=== PATIENT | male | born 1945 | race African-American/Black ===

== ENCOUNTER 2020-10-10 09:47 | Inpatient (IN) | payer OTHER ==
[2020-10-10] MEDS ORDERED: NICOTINE 10 MG CARTRIDGE (INHALER) IH PRN (12:43)
[2020-10-10] MEDS ORDERED: MAG HYDROX/AL HYDROX/SIMETH 30 ML UNIT-DOSE CUP PO PRN (12:43)
[2020-10-10] MEDS ORDERED: guaiFENesin 200 MG/10 ML 10 ML UNIT-DOSE CUPS PO PRN (12:43)
[2020-10-10] MEDS ORDERED: IBUPROFEN 400 MG TABLET (FP) PO PRN (12:43)
[2020-10-10] MEDS ORDERED: MAGNESIUM HYDROX 2400MG/30ML ORAL SUSPENSION 30 ML CUP PO PRN (12:43)
[2020-10-10] MEDS ORDERED: P-EPHED 60MG/TRIPROLIDI 2.5MG TABLET PO PRN (12:43)
[2020-10-10] MEDS ORDERED: MAGNESIUM CITRATE 300 ML BOTTLE PO PRN (12:43)
[2020-10-10] MEDS ORDERED: LOPERAMIDE HCL 2 MG CAPSULE PO PRN (12:43)
[2020-10-10 13:18] VITALS: BMI 24.3
[2020-10-10] MEDS: NICOTINE 7 MG/24 HOURS TOPICAL PATCH TD SCH (13:29)
[2020-10-10 15:41] LABS: HEMATOCRIT 39.3 % (35.4-49); HEMOGLOBIN 13.2 GM/dL (11.7-16.9); MCH 30.2 pg (25.7-33.7); MCHC 33.6 g/dl (32.0-35.9); MEAN CELL VOLUME 89.9 fl (80-96); MEAN PLT VOLUME 8.8 fl (7.5-11.1); PLATELET COUNT 227 10^3/uL (134-434); RBC 4.37 M/mm3 (4.00-5.60); RDW 15.5 % (11.9-15.9); WHITE BLOOD COUNT 7.7 K/mm3 (4.0-10.0)
[2020-10-10 15:46] LABS: ALBUMIN 3.6 g/dl (3.4-5.0)
[2020-10-10 15:49] LABS: BLOOD UREA NITROGEN 16.9 mg/dL (7-18); CALCIUM 8.4 mg/dL (8.5-10.1); CREATININE 1.4 mg/dL (0.55-1.3)
[2020-10-10 15:51] LABS: BILIRUBIN,TOTAL 1.9 mg/dL (0.2-1); TOT PROT 8.7 g/dl (6.4-8.2)
[2020-10-10] MEDS: APIXABAN 5 MG TABLET PO SCH (23:34)
[2020-10-10] MEDS: THIAMINE HCL 100 MG TABLET (FP) PO SCH (23:34)
[2020-10-10] MEDS: MELATONIN 5 MG TABLETS PO SCH (23:34)
[2020-10-11] MEDS: APIXABAN 5 MG TABLET PO SCH ×2 (09:55→21:07)
[2020-10-11] MEDS: NICOTINE 7 MG/24 HOURS TOPICAL PATCH TD SCH (09:55)
[2020-10-11] MEDS: PRENATAL VITAMINS W/ FOLIC ACID TABLET (FP) PO SCH (09:55)
[2020-10-11 11:50] LABS: HIV INTERPRETATION NEGATIVE (NEGATIVE)
[2020-10-11] MEDS ORDERED: PNEUMOC 13-VAL CONJ-DIP CRM/PF 0.5 ML DISP.SYRIN IM ONE (12:00)
[2020-10-11] MEDS: ACETAMINOPHEN 325 MG TABLET (FP) PO PRN ×2 (12:04→17:40)
[2020-10-11] MEDS: THIAMINE HCL 100 MG TABLET (FP) PO SCH (21:07)
[2020-10-11] MEDS: MELATONIN 5 MG TABLETS PO SCH (21:08)
[2020-10-11] MEDS: ATORVASTATIN CA 10 MG TABLET (FP) PO SCH (21:09)
[2020-10-11] MEDS: hydrOXYzine PAMOATE 25 MG CAPSULE (FP) PO SCH (21:09)
[2020-10-12] MEDS: APIXABAN 5 MG TABLET PO SCH ×2 (10:05→21:39)
[2020-10-12] MEDS: NICOTINE 7 MG/24 HOURS TOPICAL PATCH TD SCH (10:05)
[2020-10-12] MEDS: PRENATAL VITAMINS W/ FOLIC ACID TABLET (FP) PO SCH (10:05)
[2020-10-12] MEDS: THIAMINE HCL 100 MG TABLET (FP) PO SCH (21:39)
[2020-10-12] MEDS: ATORVASTATIN CA 10 MG TABLET (FP) PO SCH (21:39)
[2020-10-12] MEDS: MELATONIN 5 MG TABLETS PO SCH (21:40)
[2020-10-13] MEDS: PRENATAL VITAMINS W/ FOLIC ACID TABLET (FP) PO SCH (09:57)
[2020-10-13] MEDS: APIXABAN 5 MG TABLET PO SCH ×2 (09:57→22:38)
[2020-10-13] MEDS: NICOTINE 7 MG/24 HOURS TOPICAL PATCH TD SCH (09:57)
[2020-10-13] MEDS: ATORVASTATIN CA 10 MG TABLET (FP) PO SCH (22:38)
[2020-10-13] MEDS: MELATONIN 5 MG TABLETS PO SCH (22:38)
[2020-10-13] MEDS: THIAMINE HCL 100 MG TABLET (FP) PO SCH (22:38)
[2020-10-13] MEDS: hydrOXYzine PAMOATE 25 MG CAPSULE (FP) PO SCH (22:39)
[2020-10-14] MEDS ORDERED: PT OWN MED DRAWER 7, Y5N ONE (08:15)
[2020-10-14] MEDS: NICOTINE 7 MG/24 HOURS TOPICAL PATCH TD SCH (09:26)
[2020-10-14] MEDS: PRENATAL VITAMINS W/ FOLIC ACID TABLET (FP) PO SCH (09:26)
[2020-10-14] MEDS: APIXABAN 5 MG TABLET PO SCH ×2 (09:26→22:05)
[2020-10-14] MEDS: HYDROCORTISONE 2.5% TOPICAL CREAM 30 GM TUBE RC PRN (09:27)
[2020-10-14] MEDS: ATORVASTATIN CA 10 MG TABLET (FP) PO SCH (22:05)
[2020-10-14] MEDS: THIAMINE HCL 100 MG TABLET (FP) PO SCH (22:05)
[2020-10-14] MEDS: MELATONIN 5 MG TABLETS PO SCH (22:05)
[2020-10-15] MEDS: PRENATAL VITAMINS W/ FOLIC ACID TABLET (FP) PO SCH (10:11)
[2020-10-15] MEDS: APIXABAN 5 MG TABLET PO SCH ×2 (10:11→21:40)
[2020-10-15] MEDS: NICOTINE 7 MG/24 HOURS TOPICAL PATCH TD SCH (10:11)
[2020-10-15] MEDS: ATORVASTATIN CA 10 MG TABLET (FP) PO SCH (21:40)
[2020-10-15] MEDS: MELATONIN 5 MG TABLETS PO SCH (21:40)
[2020-10-15] MEDS: THIAMINE HCL 100 MG TABLET (FP) PO SCH (21:40)
[2020-10-16] MEDS: PRENATAL VITAMINS W/ FOLIC ACID TABLET (FP) PO SCH (10:23)
[2020-10-16] MEDS: NICOTINE 7 MG/24 HOURS TOPICAL PATCH TD SCH (10:23)
[2020-10-16] MEDS: APIXABAN 5 MG TABLET PO SCH ×2 (10:23→21:50)
[2020-10-16] MEDS: THIAMINE HCL 100 MG TABLET (FP) PO SCH (21:50)
[2020-10-16] MEDS: MELATONIN 5 MG TABLETS PO SCH (21:50)
[2020-10-16] MEDS: ATORVASTATIN CA 10 MG TABLET (FP) PO SCH (21:50)
[2020-10-17] MEDS: PRENATAL VITAMINS W/ FOLIC ACID TABLET (FP) PO SCH (10:05)
[2020-10-17] MEDS: NICOTINE 7 MG/24 HOURS TOPICAL PATCH TD SCH (10:05)
[2020-10-17] MEDS: APIXABAN 5 MG TABLET PO SCH ×2 (10:05→21:20)
[2020-10-17] MEDS: ACETAMINOPHEN 325 MG TABLET (FP) PO PRN (19:05)
[2020-10-17] MEDS: THIAMINE HCL 100 MG TABLET (FP) PO SCH (21:20)
[2020-10-17] MEDS: ATORVASTATIN CA 10 MG TABLET (FP) PO SCH (21:20)
[2020-10-17] MEDS: MELATONIN 5 MG TABLETS PO SCH (21:20)
[2020-10-18] MEDS: NICOTINE 7 MG/24 HOURS TOPICAL PATCH TD SCH (09:40)
[2020-10-18] MEDS: APIXABAN 5 MG TABLET PO SCH ×2 (09:40→22:01)
[2020-10-18] MEDS: PRENATAL VITAMINS W/ FOLIC ACID TABLET (FP) PO SCH (09:40)
[2020-10-18] MEDS: THIAMINE HCL 100 MG TABLET (FP) PO SCH (22:01)
[2020-10-18] MEDS: MELATONIN 5 MG TABLETS PO SCH (22:01)
[2020-10-18] MEDS: ATORVASTATIN CA 10 MG TABLET (FP) PO SCH (22:01)
[2020-10-18] MEDS: hydrOXYzine PAMOATE 25 MG CAPSULE (FP) PO SCH (22:02)
[2020-10-19] MEDS: APIXABAN 5 MG TABLET PO SCH ×2 (09:59→21:35)
[2020-10-19] MEDS: PRENATAL VITAMINS W/ FOLIC ACID TABLET (FP) PO SCH (09:59)
[2020-10-19] MEDS: NICOTINE 7 MG/24 HOURS TOPICAL PATCH TD SCH (10:00)
[2020-10-19] MEDS: ACETAMINOPHEN 325 MG TABLET (FP) PO PRN (10:01)
[2020-10-19] MEDS: MELATONIN 5 MG TABLETS PO SCH (21:35)
[2020-10-19] MEDS: THIAMINE HCL 100 MG TABLET (FP) PO SCH (21:35)
[2020-10-19] MEDS: ATORVASTATIN CA 10 MG TABLET (FP) PO SCH (21:35)
[2020-10-20] MEDS: PRENATAL VITAMINS W/ FOLIC ACID TABLET (FP) PO SCH (10:10)
[2020-10-20] MEDS: APIXABAN 5 MG TABLET PO SCH ×2 (10:10→21:24)
[2020-10-20] MEDS: NICOTINE 7 MG/24 HOURS TOPICAL PATCH TD SCH (10:10)
[2020-10-20] MEDS: ACETAMINOPHEN 325 MG TABLET (FP) PO PRN (16:45)
[2020-10-20] MEDS: MELATONIN 5 MG TABLETS PO SCH (21:24)
[2020-10-20] MEDS: ATORVASTATIN CA 10 MG TABLET (FP) PO SCH (21:24)
[2020-10-20] MEDS: THIAMINE HCL 100 MG TABLET (FP) PO SCH (21:24)
[2020-10-21] MEDS: NICOTINE 7 MG/24 HOURS TOPICAL PATCH TD SCH (09:45)
[2020-10-21] MEDS: PRENATAL VITAMINS W/ FOLIC ACID TABLET (FP) PO SCH (09:45)
[2020-10-21] MEDS: APIXABAN 5 MG TABLET PO SCH ×2 (09:45→21:27)
[2020-10-21] MEDS: ATORVASTATIN CA 10 MG TABLET (FP) PO SCH (21:27)
[2020-10-21] MEDS: THIAMINE HCL 100 MG TABLET (FP) PO SCH (21:27)
[2020-10-21] MEDS: MELATONIN 5 MG TABLETS PO SCH (21:27)
[2020-10-22] MEDS: APIXABAN 5 MG TABLET PO SCH ×2 (09:45→21:35)
[2020-10-22] MEDS: PRENATAL VITAMINS W/ FOLIC ACID TABLET (FP) PO SCH (09:45)
[2020-10-22] MEDS: NICOTINE 7 MG/24 HOURS TOPICAL PATCH TD SCH (09:46)
[2020-10-22] MEDS: ACETAMINOPHEN 325 MG TABLET (FP) PO PRN (15:31)
[2020-10-22] MEDS: THIAMINE HCL 100 MG TABLET (FP) PO SCH (21:35)
[2020-10-22] MEDS: MELATONIN 5 MG TABLETS PO SCH (21:35)
[2020-10-22] MEDS: ATORVASTATIN CA 10 MG TABLET (FP) PO SCH (21:35)
[2020-10-23] MEDS: APIXABAN 5 MG TABLET PO SCH ×2 (09:33→21:20)
[2020-10-23] MEDS: PRENATAL VITAMINS W/ FOLIC ACID TABLET (FP) PO SCH (09:33)
[2020-10-23] MEDS: HYDROCORTISONE 2.5% TOPICAL CREAM 30 GM TUBE RC PRN (09:33)
[2020-10-23] MEDS: NICOTINE 7 MG/24 HOURS TOPICAL PATCH TD SCH (09:34)
[2020-10-23] MEDS: ATORVASTATIN CA 10 MG TABLET (FP) PO SCH (21:20)
[2020-10-23] MEDS: MELATONIN 5 MG TABLETS PO SCH (21:20)
[2020-10-23] MEDS: THIAMINE HCL 100 MG TABLET (FP) PO SCH (21:20)
[2020-10-24] MEDS: APIXABAN 5 MG TABLET PO SCH ×2 (09:23→21:26)
[2020-10-24] MEDS: NICOTINE 7 MG/24 HOURS TOPICAL PATCH TD SCH (09:23)
[2020-10-24] MEDS: PRENATAL VITAMINS W/ FOLIC ACID TABLET (FP) PO SCH (09:23)
[2020-10-24] MEDS: ACETAMINOPHEN 325 MG TABLET (FP) PO PRN (12:43)
[2020-10-24] MEDS: THIAMINE HCL 100 MG TABLET (FP) PO SCH (21:26)
[2020-10-24] MEDS: ATORVASTATIN CA 10 MG TABLET (FP) PO SCH (21:26)
[2020-10-24] MEDS: MELATONIN 5 MG TABLETS PO SCH (21:26)
[2020-10-25] MEDS: PRENATAL VITAMINS W/ FOLIC ACID TABLET (FP) PO SCH (09:17)
[2020-10-25] MEDS: APIXABAN 5 MG TABLET PO SCH ×2 (09:17→21:33)
[2020-10-25] MEDS: NICOTINE 7 MG/24 HOURS TOPICAL PATCH TD SCH (09:17)
[2020-10-25] MEDS: ATORVASTATIN CA 10 MG TABLET (FP) PO SCH (21:33)
[2020-10-25] MEDS: MELATONIN 5 MG TABLETS PO SCH (21:33)
[2020-10-25] MEDS: THIAMINE HCL 100 MG TABLET (FP) PO SCH (21:33)
[2020-10-26] MEDS: PRENATAL VITAMINS W/ FOLIC ACID TABLET (FP) PO SCH (10:05)
[2020-10-26] MEDS: APIXABAN 5 MG TABLET PO SCH ×2 (10:05→21:27)
[2020-10-26] MEDS: NICOTINE 7 MG/24 HOURS TOPICAL PATCH TD SCH (10:05)
[2020-10-26] MEDS: ACETAMINOPHEN 325 MG TABLET (FP) PO PRN (18:32)
[2020-10-26] MEDS: ATORVASTATIN CA 10 MG TABLET (FP) PO SCH (21:27)
[2020-10-26] MEDS: THIAMINE HCL 100 MG TABLET (FP) PO SCH (21:27)
[2020-10-26] MEDS: MELATONIN 5 MG TABLETS PO SCH (21:27)
[2020-10-27] MEDS: APIXABAN 5 MG TABLET PO SCH ×2 (09:43→21:28)
[2020-10-27] MEDS: NICOTINE 7 MG/24 HOURS TOPICAL PATCH TD SCH (09:43)
[2020-10-27] MEDS: PRENATAL VITAMINS W/ FOLIC ACID TABLET (FP) PO SCH (09:43)
[2020-10-27] MEDS: ATORVASTATIN CA 10 MG TABLET (FP) PO SCH (21:29)
[2020-10-27] MEDS: MELATONIN 5 MG TABLETS PO SCH (21:29)
[2020-10-27] MEDS: THIAMINE HCL 100 MG TABLET (FP) PO SCH (21:29)
[2020-10-28] MEDS: APIXABAN 5 MG TABLET PO SCH ×2 (09:31→21:36)
[2020-10-28] MEDS: PRENATAL VITAMINS W/ FOLIC ACID TABLET (FP) PO SCH (09:31)
[2020-10-28] MEDS: NICOTINE 7 MG/24 HOURS TOPICAL PATCH TD SCH (09:31)
[2020-10-28] MEDS: ACETAMINOPHEN 325 MG TABLET (FP) PO PRN ×2 (12:05→18:33)
[2020-10-28] MEDS: THIAMINE HCL 100 MG TABLET (FP) PO SCH (21:36)
[2020-10-28] MEDS: MELATONIN 5 MG TABLETS PO SCH (21:36)
[2020-10-28] MEDS: ATORVASTATIN CA 10 MG TABLET (FP) PO SCH (21:36)
[2020-10-29 07:00] VITALS: TEMP 96.9
[2020-10-29 09:06] VITALS: BP 117/74; PULSE 106
[2020-10-29] MEDS: PRENATAL VITAMINS W/ FOLIC ACID TABLET (FP) PO SCH (09:33)
[2020-10-29] MEDS: NICOTINE 7 MG/24 HOURS TOPICAL PATCH TD SCH (09:33)
[2020-10-29] MEDS: APIXABAN 5 MG TABLET PO SCH (09:33)
== END 2020-10-29 09:37 | disposition home or self-care (01) | DRG 895 ==
LOC: YASAS 09:47 → Y3E 12:52
PROVIDERS: ADMIT Allergy & Immunology; ATTEND Allergy & Immunology
PROC: HZ42ZZZ Group Counseling for Substance Abuse Treatment, Cognitive-Behavioral (ICD-10-PCS; principal; 2020-10-10)
DX: F10.20 Alcohol dependence, uncomplicated (principal); F14.20 Cocaine dependence, uncomplicated; F17.210 Nicotine dependence, cigarettes, uncomplicated; I25.10 Atherosclerotic heart disease of native coronary artery without angina pectoris; Z95.5 Presence of coronary angioplasty implant and graft; I48.91 Unspecified atrial fibrillation; R26.89 Other abnormalities of gait and mobility; Z96.642 Presence of left artificial hip joint; Z79.01 Long term (current) use of anticoagulants; Z95.0 Presence of cardiac pacemaker; Z86.19 Personal history of other infectious and parasitic diseases; Z99.89 Dependence on other enabling machines and devices; Z91.14 Patient's other noncompliance with medication regimen
CPT/HCPCS: 36415; 80053; 85027; 86593; 86780; 87389; 90670; 93005; 93010; C9803; U0003; U0005